=== PATIENT | female | born 1955 | race Caucasian/White ===

== ENCOUNTER → 2016-10-01 | Outpatient (CLI) | payer BC ==
[~2016-10-01] MED LIST: BNC/40 PO; LEVO100T PO; MULTTAB PO; SIMV20TA5 PO
[2016-10-01 09:38] LABS: HEMATOCRIT 45.2 % (37-47); MEAN CELL VOLUME 88.5 fL (80-100); MEAN CORPUSCULAR HEMOGLOBIN 28.8 pg (25-34); MEAN CORPUSCULAR HGB CONC 32.5 g/dl (32-36); MEAN PLATELET VOLUME 12.5 fL (7.4-10.4); PLATELET COUNT 188 K/uL (130-400); RED BLOOD COUNT 5.11 M/uL (4.2-5.4); WHITE BLOOD COUNT 5.67 K/uL (4.8-10.8)
[2016-10-01 09:51] LABS: ALT/SGPT 32 U/L (12-78); AST/SGOT 17 U/L (15-37); BLOOD UREA NITROGEN 19 mg/dl (7-18); BUN/CREATININE RATIO 23.8 (10-20); CALCIUM 9.3 mg/dl (8.5-10.1); CARBON DIOXIDE 27 mmol/L (21-32); CHLORIDE 109 mmol/L (98-107); CHOLESTEROL 188 mg/dl (0-200); CREATININE 0.81 mg/dl (0.60-1.20); GLUCOSE 95 mg/dl (70-99); POTASSIUM 4.2 mmol/L (3.5-5.1); SODIUM 142 mmol/L (136-145); TRIGLYCERIDES 75 mg/dl (0-150); VERY LOW DENSITY LIPOPROT CALC 15 mg/dl
[2016-10-01 10:00] LABS: ALB/GLOB RATIO 1.3 (0.9-2); ALKALINE PHOSPHATASE 70 U/L (45-117); CHOLESTEROL/HDL RATIO 3.2; HDL CHOLESTEROL 58 mg/dl; LDL CHOLESTEROL CALCULATED 115 mg/dl
[2016-10-01 10:34] LABS: ESTIMATED AVERAGE GLUCOSE 126 mg/dl; HA1C FLAG Normal (Normal)
--- NOTE | 2016-10-05 09:06 | CODING QUERY MEDICAL NECESSITY ---
CQSUPPORTING DIAGNOSIS NEEDED A supporting diagnosis is required for the test/procedure performed on this patient in order for us to be reimbursed by the patient's insurance. Please provide a supporting diagnosis for the following test/procedure listed below next to the test name along with your signature. *If there is no additional diagnosis for this patient that would support the following test/procedure please document that below next to the test/procedure. Test(s)/Procedure(s) that require a supporting diagnosis: DOS 10/01/16 ONLY DIAGNOSIS GIVEN WAS SCREENING NEED DIAGNOSIS FOR TESTS: HEMOGLOBIN, LIPID THYROID CBC COMPRENSIVE METABOLIC Provider Signature: Date: Thank you Lamar Romano Health Information Management Once completed, please kindly fax back to [phone] For questions please call [phone]
== END | disposition home or self-care (01) ==
LOC: C.LAB1850 06:54
PROVIDERS: ATTEND Family Medicine
DX: Z13.9 Encounter for screening, unspecified (principal); R73.09 Other abnormal glucose

== ENCOUNTER 2024-02-28 05:08 | Observation (INO) ==
--- NOTE | 2024-01-21 16:05 | PAT Medication Instructions ---
Medication Instructions Date of Service January 21, 2024 Home Medications Medication Instructions Recorded telmisartan 80 mg tablet 80 mg PO HS #90 tabs 04/13/23 peg 3350-sod sulf,[id number]-[id number]-rvb See Rx Instructions PO .COMPLEX #2 08/25/23 178.7-7.3-0.5-1.12-0.9 gram oral mL soln (Suflave) levothyroxine 100 mcg tablet 100 mcg PO HS #90 tabs 10/19/23 (Synthroid) multivitamin 1 tab PO QAM aspirin 81 mg tablet,delayed release 81 mg PO HS calcium 300 mg-D3 20 mcg-magnesium 25 mg-coppr 0.5 tm-glwz-curn tablet (Caltrate-D3 Plus Minerals) 1 tab PO DAILY telmisartan 80 mg tablet 80 mg PO HS peg 3350-sod sulf,[id number]-oko-rlp 178.7-7.3-0.5-1.12-0.9 gram oral soln (Suflave) See Rx Instructions PO .COMPLEX levothyroxine 100 mcg tablet (Synthroid) 100 mcg PO HS Collagen Powder 1 dose PO DAILY Probiotic 1 cap PO QAM alprazolam 0.5 mg tablet 0.5 mg PO DAILY PRN amlodipine 5 mg tablet 5 mg PO QAM cetirizine 10 mg tablet 10 mg PO DAILY PRN cyclobenzaprine 10 mg tablet 10 mg PO TID PRN diclofenac sodium 75 mg tablet,delayed release 75 mg PO BID indapamide 2.5 mg tablet 2.5 mg PO DAILY PRN meclizine 25 mg tablet 25 mg PO TID PRN rosuvastatin 10 mg tablet 10 mg PO HS Continue as directed alprazolam 0.5 mg tablet 0.5 mg PO DAILY PRN(if needed) ASK your surgeon for instructions diclofenac sodium 75 mg tablet,delayed release 75 mg PO BID ASK your prescriber and surgeon aspirin 81 mg tablet,delayed release 81 mg PO HS peg 3350-sod sulf,zkhyy-ddt-ajs 178.7-7.3-0.5-1.12-0.9 gram oral soln (Suflave) See Rx Instructions PO .COMPLEX STOP taking 2 weeks before surgery (or as soon as possible if surgery is within 2 weeks) Collagen Powder 1 dose PO DAILY DO NOT take the morning of surgery multivitamin 1 tab PO QAM calcium 300 mg-D3 20 mcg-magnesium 25 mg-coppr 0.5 np-mvxt-qmfa tablet (Caltrate-D3 Plus Minerals) 1 tab PO DAILY Probiotic 1 cap PO QAM cetirizine 10 mg tablet 10 mg PO DAILY PRN indapamide 2.5 mg tablet 2.5 mg PO DAILY PRN Take morning of surgery With a small sip of water, OTHERWISE NOTHING TO EAT OR DRINK AFTER MIDNIGHT: amlodipine 5 mg tablet 5 mg PO QAM cyclobenzaprine 10 mg tablet 10 mg PO TID PRN(if needed) meclizine 25 mg tablet 25 mg PO TID PRN(if needed) Take evening before surgery telmisartan 80 mg tablet 80 mg PO HS levothyroxine 100 mcg tablet (Synthroid) 100 mcg PO HS cyclobenzaprine 10 mg tablet 10 mg PO TID PRN(if needed) meclizine 25 mg tablet 25 mg PO TID PRN(if needed) rosuvastatin 10 mg tablet 10 mg PO HS Other Notes If you have any questions please call us at [phone] or [phone] or [phone] or [phone]
--- NOTE | 2024-01-31 08:20 | Anesthesiology Consultation ---
Date of Service January 31, 2024 Assessment & Plan (1) Encounter for pre-operative examination: Plan - Case discussed in detail with Dr. Adler who advised nothing additional is needed, patient is acceptable to proceed. - neurology office visit 04/09/23 [facility]: "...previously seen for recurrent episodes of left facial numbness with noncontributory imaging...partial empty sella without significant headaches and without no [sic] evidence of pseudotumor cerebri...chronic non-pulsatile tinnitus on the left...CT venogram hypoplastic left transverse sinus CTA of head and neck mild atherosclerotic plaque left greater than right carotid bulbs resulting in less than 50% stenosis. Focal kinking with moderate narrowing within the V1 segment of the left HOST...no high- grade stenosis proximal branch occlusion...suspect occasional BPPV...return as needed..." - Outpatient joint assessment: Patient is currently scheduled for inpatient pathway. If re-evaluated and patient/surgeon requests outpatient pathway, patient is not ideal candidate for outpatient joint program from anesthesia standpoint. Chart Review Chart Review: Acceptable Risk for Surgery and Patient seen in Pre Admission Testing Teaching & Discussion Pre-Anesthesia Teaching/Discussion Notes: Instructed NPO after midnight before surgery, except medications with 15 cc of water. Medication instructions provided according to the PAT guidelines. History Surgery Operation Date: 02/28/24 11:00 Proposed Procedures p Right Anterior Total Hip Arthroplasty - Eric Whitaker DO Height/Weight Height: 4 ft 11 in Weight: 75.6 kg Allergies Allergy/AdvReac Type Severity Reaction Status Date / Time clindamycin Allergy Severe Anaphylaxis Verified 01/31/24 08:47 Medications Home Medications Medication Instructions Recorded Confirmed Last Taken multivitamin 1 tab PO QAM 05/22/18 01/21/24 09/18/19 aspirin 81 mg tablet,delayed 81 mg PO HS 08/16/18 01/21/24 09/18/19 release calcium 300 mg-D3 20 mcg-magnesium 1 tab PO DAILY 05/26/22 01/21/24 Unknown 25 mg-coppr 0.5 fp-aqti-bgty tablet (Caltrate-D3 Plus Minerals) telmisartan 80 mg tablet 80 mg PO HS #90 tabs 04/13/23 01/21/24 Unknown peg 3350-sod sulf,qwjqp-skw-cov See Rx Instructions PO .COMPLEX #2 08/25/23 09/02/23 Unknown 178.7-7.3-0.5-1.12-0.9 gram oral mL soln (Suflave) Collagen Powder 1 dose PO DAILY 01/21/24 01/21/24 Unknown Probiotic 1 cap PO QAM 01/21/24 01/21/24 Unknown alprazolam 0.5 mg tablet 0.5 mg PO DAILY PRN Anxiety 01/21/24 01/21/24 Unknown amlodipine 5 mg tablet 5 mg PO QAM 01/21/24 01/21/24 Unknown cetirizine 10 mg tablet 10 mg PO DAILY PRN Allergies 01/21/24 01/21/24 Unknown cyclobenzaprine 10 mg tablet 10 mg PO TID PRN Muscle Spasms 01/21/24 01/21/24 Unknown diclofenac sodium 75 mg 75 mg PO BID 01/21/24 01/21/24 Unknown tablet,delayed release indapamide 2.5 mg tablet 2.5 mg PO DAILY PRN Edema 01/21/24 01/21/24 Unknown meclizine 25 mg tablet 25 mg PO TID PRN Dizziness 01/21/24 01/21/24 Unknown rosuvastatin 10 mg tablet 10 mg PO HS 01/21/24 01/21/24 Unknown levothyroxine 100 mcg tablet 100 mcg PO QAM 01/31/24 01/31/24 Unknown (Synthroid) Additional Notes: Patient was instructed to take levothyroxine in the morning as she stated that is currently how she is taking medication. Past Medical History Medical History (Updated 01/31/24 @ 11:21 by Estrellita Ramirez PA-C) Anxiety Claustrophobia Empty sella syndrome last MRI done 2022, denies any issues-discharged by [facility] neurology GERD (gastroesophageal reflux disease) controlled, stable per pt History of anesthesia reaction "6-8 hours after last colonoscopy my eyes were runny nose itchy/watery and kept sneezing" History of colon polyps History of dizziness intermittent/meclizine - no issues current History of kidney stones passed on own HTN (hypertension) controlled, stable per pt Hx of epistaxis denies any recent episodes Hx of hydronephrosis Hx of migraines Hyperlipidemia Hypothyroidism Knee pain right-chronic Lumbar disc disease Osteoarthritis Tinnitus Left Transverse sinus thrombosis noted on 2021 head MRA; not noted on 2022 head CTA; CT venogram hypoplastic left transverse sinus CTA Patient denies h/o seizures, heart attack, heart failure, DM, or blood transfusions. Exercise / Class Metabolic Activity II 4-5 Yardwork/Stairs/Walk up hill (denies chest discomfort or shortness of breath with one flight of stairs) Past Family History Family History Mother Family history of diabetes mellitus Diabetes Hypertension Stroke Brother Coronary heart disease Prostate cancer Bladder cancer Father Nephrolithiasis Grandmother (Paternal) Breast cancer Mother Myocardial infarction Heart disease Other No family history of adverse response to anesthesia Denies family history of Ovarian cancer Colorectal cancer Past Surgical History Surgical History History of bilateral tubal ligation History of colonoscopy History of dilatation and curettage History of oral surgery bone graft to old root canal site History of root canal procedure History of wisdom tooth extraction Past Anesthesia History No Family Hx of Anesthesia Complications History of PONV No Hx of PONV and Hx of Motion Sickness Social History Smoking Status: Never smoker Do You Dip or Chew Tobacco: No Hx Alcohol Use: Yes Alcohol type: wine alcohol intake frequency: holidays/special occasions only Hx Substance Use: No substance use type: does not use Review of Systems Snoring, denies witnessed apneas. Patient denies chest pain, shortness of breath, dyspnea on exertion, fever, chills, cough, wheezing, or palpitations. Physical Exam Vital Signs Vitals BP 160/81 (Pt states is anxious regarding surgery) P 75 TEMP 98.6 SP02 98% on RA RESP 18 Physical Patient resting comfortably in chair in no acute distress, alert and oriented, responding appropriately throughout visit Full cervical extension range of motion without pain TMD 3.5 finger breadths Mallampati Score 2 Dentition: implant and several caps/crowns, denies chipped or loose teeth, or bridges Lungs: normal respiratory effort. Good air movement, clear throughout to auscultation, no adventitious breath sounds Cardiac: regular rate and rhythm, no murmurs noted Carotid arteries: negative bruit bilat Lab Results Anesthesia Preop Results Results Anesthesia Widget: WBC 5.27 K/ul (4.8-10.8) 01/31/24 Hgb 14.5 g/dl (12.0-16.0) 01/31/24 Hct 43.9 % (37.0-47.0) 01/31/24 Plt 197 K/uL (130-400) 01/31/24 Na 140 mmol/L (136-145) 01/31/24 K 4.5 mmol/L (3.5-5.1) 01/31/24 Cl 106 mmol/L (98-107) 01/31/24 CO2 27 mmol/L (21-32) 01/31/24 BUN 15 mg/dl (6-23) 01/31/24 Creat 0.74 mg/dl (0.6-1.2) 01/31/24 Glucose Level 92 mg/dl (70-99(Fasting)) 01/31/24 PT 10.6 Seconds (9.0-12.0) 01/31/24 PTT 27 Seconds (21-31) 01/31/24 INR 1.0 (0.9-1.1) 01/31/24 HA1c 6.3 % (4.5-5.6) H 01/31/24 Blood Type O Negative 01/31/24 Antibody Screen NEGATIVE 01/31/24 Testing Electrocardiogram Date: 01/31/24 NSR, rate 72 bpm Chest X-Ray Date: 01/31/24 No evidence of acute cardiopulmonary disease, communicable disease or tuberculosis. No interval change. Stress Test Date: 12/17/20 METS 11 MPHR 102% Negative for inducible ischemia EF 60-65% Normal LV wall motion Grade I diastolic dysfunction Mild cLVH Other Testing Head and neck CTA 05/27/22 1. No acute intracranial abnormality. 2. No evidence of cerebral venous thrombosis. 3. Unremarkable CTA of the head and neck. Head and neck MRA 05/09/21 MRI brain shows no acute abnormality. Mildly extensive scattered foci of T2 hyperintensity in the cerebral white matter bilaterally, without restricted diffusion, a non-specific finding. Mild cerebral volume loss. MRA of neck shows no flow limiting stenosis. MRA of the head shows no large vessel occlusion, flow limiting stenosis, aneurysm or vascular malformation. 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 Moderately expanded empty sella present. This is a nonspecific finding, however, in the setting of headaches can be associated with idiopathic intracranial h ypertension (pseudotumor cerebri) No focal finding to explain recurrent left facial numbness
--- NOTE | 2024-02-23 07:49 | History & Physical Report ---
Date of Service February 23, 2024 Assessment & Plan (1) Osteoarthritis of right hip: We will proceed with a right anterior total of arthroplasty. Postoperatively she will be started on aspirin for DVT prophylaxis and kept overnight in the hospital for postop medical management. She plans to use energy physical therapy upon discharge. History of Present Illness Chief Complaint: Osteoarthritis of the right hip. Primary Care Provider: Lyndon Merritt MD June is a pleasant 68-year-old female who has been dealing with chronic increasing right hip and groin pain. X-ray and clinical examination have been diagnostic for advanced arthritis of her right hip. She had been seen by one of the partners in my office. She has had injections of her hip which only helped briefly. It is to the point where it is affecting her quality of life and her daily activities. After failing conservative treatment, she has elected to proceed with a right anterior total of arthroplasty. Allergies Allergy/AdvReac Type Severity Reaction Status Date / Time clindamycin Allergy Severe Anaphylaxis Verified 01/31/24 08:47 Home Medications Medication Instructions Recorded Confirmed Type multivitamin 1 tab PO QAM 05/22/18 01/21/24 History aspirin 81 mg tablet,delayed 81 mg PO HS 08/16/18 01/21/24 History release calcium 300 mg-D3 20 mcg-magnesium 1 tab PO DAILY 05/26/22 01/21/24 History 25 mg-coppr 0.5 fr-hrrh-ltus tablet (Caltrate-D3 Plus Minerals) telmisartan 80 mg tablet 80 mg PO HS #90 tabs 04/13/23 01/21/24 Rx peg 3350-sod sulf,fpuzh-wir-ddr See Rx Instructions PO .COMPLEX #2 08/25/23 09/02/23 Rx 178.7-7.3-0.5-1.12-0.9 gram oral mL soln (Suflave) Collagen Powder 1 dose PO DAILY 01/21/24 01/21/24 History Probiotic 1 cap PO QAM 01/21/24 01/21/24 History alprazolam 0.5 mg tablet 0.5 mg PO DAILY PRN Anxiety 01/21/24 01/21/24 History amlodipine 5 mg tablet 5 mg PO QAM 01/21/24 01/21/24 History cyclobenzaprine 10 mg tablet 10 mg PO TID PRN Muscle Spasms 01/21/24 01/21/24 History diclofenac sodium 75 mg 75 mg PO BID 01/21/24 01/21/24 History tablet,delayed release indapamide 2.5 mg tablet 2.5 mg PO DAILY PRN Edema 01/21/24 01/21/24 History meclizine 25 mg tablet 25 mg PO TID PRN Dizziness 01/21/24 01/21/24 History rosuvastatin 10 mg tablet 10 mg PO HS 01/21/24 01/21/24 History levothyroxine 100 mcg tablet 100 mcg PO QAM 01/31/24 01/31/24 History (Synthroid) cetirizine 10 mg tablet 10 mg PO DAILY PRN Allergies #30 02/11/24 Rx tabs Past Med/Surg History Problem List Osteoarthritis of right hip Other sprain of right hip, subsequent encounter Other specific joint derangements of unspecified hip, not elsewhere classified Labral tear of hip joint GERD (gastroesophageal reflux disease) Hip arthritis Plantar fasciitis of right foot IT band syndrome Greater trochanteric pain syndrome Impaired glucose tolerance Knee pain Lumbar disc disease Osteoarthritis of both hips Tinnitus of left ear Dysequilibrium Empty sella syndrome Anxiety Atypical migraine 02/06/22 HPV test positive History of colon polyps Hypothyroidism Hyperlipidemia Hypertension Epistaxis, recurrent (Acute) 09/10/15 Medical History Transverse sinus thrombosis noted on 2021 head MRA; not noted on 2022 head CTA; CT venogram hypoplastic left transverse sinus CTA Claustrophobia History of kidney stones passed on own Hx of epistaxis denies any recent episodes Hx of migraines Hx of hydronephrosis Tinnitus Left Anxiety Knee pain right-chronic Lumbar disc disease History of dizziness intermittent/meclizine - no issues current Empty sella syndrome last MRI done 2022, denies any issues-discharged by [facility] neurology Hypothyroidism History of colon polyps HTN (hypertension) controlled, stable per pt Hyperlipidemia Osteoarthritis GERD (gastroesophageal reflux disease) controlled, stable per pt History of anesthesia reaction "6-8 hours after last colonoscopy my eyes were runny nose itchy/watery and kept sneezing" Surgical History History of dilatation and curettage History of bilateral tubal ligation History of colonoscopy History of oral surgery bone graft to old root canal site History of root canal procedure History of wisdom tooth extraction Family History Mother Family history of diabetes mellitus Diabetes Hypertension Stroke Brother Coronary heart disease Prostate cancer Bladder cancer Father Nephrolithiasis Grandmother (Paternal) Breast cancer Mother Myocardial infarction Heart disease Other No family history of adverse response to anesthesia Denies family history of Ovarian cancer Colorectal cancer Social History Smoking Status: Never smoker Second Hand Exposure: No; Do You Dip or Chew Tobacco: No; Tobacco Cessation Education Requested by Patient: No Hx Alcohol Use: Yes Alcohol type: wine Hx Substance Use: No Preferred Language: Zambian Communication Ability: Effective Visual Impairment: No Limitations Hearing Ability: Normal 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 Beliefs That Will Affect Care: None marital status: Current Living Situation: Spouse current occupational status: retired How many Children do You have: 4 Other Information That Helps Us Care for You: No Feels Safe at Home: Yes Safety Concerns: Feels Safe At This Time Childhood Exposure to Second-Hand Smoke: Yes Diet: regular caffeine: No during the past year weight has: increased > 10 lbs Dental Care, Regularly: Yes Physical Activity Frequency: Daily Seatbelt Use: always Sunscreen Use: Yes Assistive Devices: Contacts, Glasses and Other Assistive Devices Comment: Dental Implants Review of Systems All systems reviewed & are unremarkable except as noted in HPI & below. Physical Exam On physical exam of the right hip, she is decreased range of motion. She has pain with internal/external rotation. All of her pains located in the groin.. Constitutional WD/WN, vitals as above Eyes PERRL, conjunctivae normal, anicteric sclerae ENMT external ear and nose normal, oropharynx normal Neck trachea midline, no thyromegaly Respiratory normal respiratory effort Cardiovascular RRR, no murmur, no edema Gastrointestinal (Abdomen) normal bowel sounds, soft, nontender, no hepatosplenomegaly Psychiatric A+Ox3, euthymic affect Results & Data Results & Data Laboratory Results . Diagnostic Findings X-rays of the right hip show advanced osteoarthritis with joint space narrowing, osteophyte formation, and [id number] tubulation. PG Care Time/CCT Total # of Minutes Spent Total Time Spent with Patient: Total time spent is greater than 50% in coordination of care (as documented) at patient's floor/unit and/or counseling patient: Coding Level of Care Code None Diagnoses Osteoarthritis of right hip M16.11
[2024-02-28] MEDS: GABAPENTIN 300 MG CAP PO SCH (05:59)
[2024-02-28] MEDS: FAMOTIDINE 20 MG TAB PO SCH (05:59)
[2024-02-28] MEDS: LR 500ML BOLUS, THEN 15ML/HR IV SCH (05:59)
[2024-02-28] MEDS: ACETAMINOPHEN 500 MG TAB PO SCH (05:59)
[2024-02-28] MEDS: dexAMETHasone**PF** 10 MG/ML VIAL IV SCH (06:00)
[2024-02-28] MEDS ORDERED: BUPIVACAINE 0.5 % 5 MG/1 ML PF 10ML VIAL ONE (06:18)
--- NOTE | 2024-02-28 06:30 | History & Physical Bridge Note ---
Date of Service February 28, 2024 History & Physical Bridge Note I have examined the patient, reviewed the History & Physical and in the interval since the performance of the History & Physical I have noted the following changes of clinical significance: no changes noted
[2024-02-28] MEDS ORDERED: LIDOCAINE 2% 2 ML VIAL/AMP(20MG/ML) INFIL ONE (06:36)
[2024-02-28] MEDS ORDERED: fentaNYL citrate PF 100 MCG/2 ML VIAL ONE (06:37)
[2024-02-28] MEDS ORDERED: MIDAZOLAM HCL 1 MG/ML 2ML VIAL ONE (06:37)
[2024-02-28] MEDS ORDERED: PROPOFOL IV EMULSION 10 MG/ML 20 ML VIAL IV ONE (06:37)
[2024-02-28] MEDS ORDERED: ONDANSETRON INJ 2 MG/ML 2 ML VIAL IV PRN ×2 (06:43→09:21)
[2024-02-28] MEDS ORDERED: fentaNYL citrate PF 100 MCG/2 ML VIAL IV PRN (06:43)
[2024-02-28] MEDS ORDERED: ATROPINE SULFATE 0.1 MG/ML 10ML SYR IV PRN (06:43)
[2024-02-28] MEDS ORDERED: ePHEDrine sulfate 50 MG/ML AMP IV PRN (06:43)
[2024-02-28] MEDS: TRANEXAMIC ACID 1,000 MG **IV Pre-op IV SCH (06:46)
[2024-02-28] MEDS: ceFAZolin 2000MG 2,000 MG/15 ML SYR IV SCH (06:58)
[2024-02-28] MEDS ORDERED: PHENYLEPHRINE 100MCG/ML 5ML SYR ONE (07:21)
[2024-02-28] MEDS: ROPIV 0.5% 246mg, Ketorolac 30mg, EPINEPHrine 0.5mg in NSS INFIL SCH (07:34)
[2024-02-28] MEDS: TRANEXAMIC ACID 1,000 MG **IV Intra-op IV SCH (08:02)
--- NOTE | 2024-02-28 08:16 | Fluoroscopy Report ---
FL hip RT 1V CLINICAL HISTORY: RIGHT ANTERIOR SAMUEL COMPARISON STUDY: Pelvis and hip radiographs June 09, 2023. FLUOROSCOPY TIME: 12 seconds. Ka,r: 1.5637 mGy FLUOROSCOPIC IMAGES: 1 FINDINGS: Fluoroscopy was provided during anterior total right hip arthroplasty. Alignment is anatomi c. There is an acetabular screw. No fractures are identified by fluoroscopy. IMPRESSION: Fluoroscopy provided during anterior total right hip arthroplasty. ACT 112: Negative or not required by law. Electronically signed by: Dario Yang M.D. 02/28/2024 8:14 AM
--- NOTE | 2024-02-28 08:24 | Operative Report ---
PG Post Operative Report Pre & Post Diagnosis Operation Date: 02/28/24 07:00 Pre-Op Diagnosis: Right Hip Arthritis Post-Op Diagnosis: Right Hip Arthritis I identified the patient and participated in the time-out.: Yes Procedure Operation Date: 02/28/24 07:00 Actual Procedures p Right Anterior Total Hip Arthroplasty(Right) - Eric Whitaker DO Surgeon Eric Whitaker DO Autopsy Assistant None Estimated Blood Loss 150 Findings Consistent with Post-Op Diagnosis Specimens Right femoral head Description of Procedure Implants used I used a ZimmerBiomet total hip arthroplasty system with a size 3 standard Avenir Complete stem, a 50 mm G7 cup with a 25mm screw, an E1 polyethylene liner, a 36 mm ceramic head with a 0 neck. June arrived at the hospital for the above procedure. She was seen in the preoperative holding area and the operative extremity was identified and signed. She was given a spinal anesthetic, a preoperative antibiotic, and TXA. She was then taken back to the operating room and laid on the table in the supine position. She was given basic sedation. The operative leg was secured to a Puristst leg positioner. The hip was then prepped and draped in sterile fashion. A timeout was done and the patient and the operative extremity was properly identified. An anterior approach was used. Dissection was taken down through the fascia and the tensor muscle belly was retracted laterally and the rectus was retracted medially. The circumflex vessels were identified and ligated. The capsule was then incised and tagged for later repair. The femoral neck was then cut and the femoral head was removed. The acetabulum was exposed. Time was spent doing a complete circumferential labral release. Sequential reaming of the acetabulum up to a size 49 reamer was done. Final reamings were done under fluoroscopy to ensure appropriate version. A Biomet 50 mm G7 cup was then impacted into place. A single 25 mm screw was placed. The E1 polyethylene liner was then snapped into place. Surrounding soft tissues were then injected with 100 cc of an orthopedic pain control cocktail. The proximal femur was then exposed. Sequential broaching up to a size 3 broach was done. Off that broach a size 36 head with a 0 neck was trialed. The hip was reduced and fluoroscopic images showed anatomic alignment of the implants in acceptable length. The broach was removed. The final size 3 standard offset Avenir Complete stem was then impacted into place. A ceramic 36 mm head with a 0 neck was then impacted onto the stem and the hip was reduced. Final fluoroscopic images showed anatomic alignment of the hip. The capsule was then closed with #1 Vicryl suture. A dilute betadyne lavage was then done for 3 minutes. The joint was then irrigated with normal saline solution. The fascia was closed with #1 PDS suture. Skin was closed with 2-0 Vicryl, sal, and a Silverlon dressing. She was then transferred to a hospital bed and taken to the post anesthesia care unit in stable condition. She tolerated the procedure well. I attest to the content of the Intraoperative Record and any orders documented therein. Any exceptions are noted below.
--- NOTE | 2024-02-28 08:55 | XRay Report ---
XR hip 1V RT w pelvis CLINICAL HISTORY: IN PACU - Post Surgical COMPARISON: Right hip radiographs June 09, 2023. FINDINGS: Alignment of the total right hip arthroplasty is anatomic. There is no periprosthetic frac ture or unexpected radiopaque foreign body. There is an acetabular screw and skin sal. IMPRESSION: Expected findings following total right hip arthroplasty. ACT 112: Negative or not required by law. Electronically signed by: Dario Yang M.D. 02/28/2024 8:53 AM
[2024-02-28] MEDS: ORTHO JOINT ANESTHETIC ONE (09:19)
[2024-02-28] MEDS: LR 60ML/HR IV SCH (09:19)
[2024-02-28] MEDS ORDERED: INDAPAMIDE 1.25 MG TAB PO PRN (09:21)
[2024-02-28] MEDS ORDERED: MAGNESIUM HYDROXIDE SUSP 30 ML UDC PO PRN (09:21)
[2024-02-28] MEDS ORDERED: HYDROmorphone INJ 0.5 MG/0.5 ML SYR IV PRN (09:21)
[2024-02-28] MEDS ORDERED: CETIRIZINE HCL 10 MG TABLET PO PRN (09:21)
[2024-02-28] MEDS ORDERED: MECLIZINE HCL 25 MG TAB PO PRN (09:21)
[2024-02-28] MEDS ORDERED: bisacodyL 10 MG SUPP PR PRN (09:21)
[2024-02-28] MEDS ORDERED: NALOXONE HCL 0.4 MG/1 ML VIAL/CARP IV PRN (09:21)
[2024-02-28] MEDS ORDERED: METOCLOPRAMIDE HCL INJ 5 MG/ML 2 ML VIAL IV PRN (09:21)
[2024-02-28] MEDS ORDERED: ALPRAZolam 0.5 MG TABLET PO PRN (09:21)
[2024-02-28] MEDS: LEVOTHYROXINE SODIUM 100 MCG TABLET PO SCH (10:29)
[2024-02-28] MEDS: DOCUSATE SODIUM 100 MG CAP PO SCH (10:34)
[2024-02-28] MEDS: ASPIRIN 81 MG ECTAB PO SCH (10:34)
[2024-02-28] MEDS: KETOROLAC 30 MG/ML VIAL IV SCH (10:34)
[2024-02-28] MEDS: MULTIVITAMIN TAB PO SCH (10:34)
[2024-02-28] MEDS: amLODIPine BESYLATE 5 MG TAB PO SCH (10:35)
[2024-02-28] MEDS: ceFAZolin 1000MG 1,000 MG/7.5 ML SYR IV SCH (13:48)
--- NOTE | 2024-02-28 13:56 | Anesthesiology Progress Note ---
Date of Service February 28, 2024 Anesthesia Post Procedure Vital Signs Vital Signs: Temp Pulse Resp BP BP Pulse Ox O2 Del Method 02/28/24 12:28 36.6 C 88 18 138/78 96 Room Air 02/28/24 11:25 84 16 135/75 92 Room Air 02/28/24 10:17 80 16 149/83 H 97 Room Air 02/28/24 09:51 36.4 C L 80 18 136/81 96 Room Air 02/28/24 09:40 Room Air 02/28/24 09:20 36.3 C L 72 18 125/66 94 Room Air 02/28/24 09:05 36.4 C L 70 13 112/52 L 98 Room Air 02/28/24 08:55 77 18 119/53 L 92 Room Air 02/28/24 08:45 75 19 116/52 L 96 Room Air 02/28/24 08:35 75 23 96/50 L 96 Room Air 02/28/24 08:26 36.3 C L 78 15 109/55 L 95 Room Air 02/28/24 05:46 36.4 C L 88 18 168/76 H 98 Room Air Pain Intensity Right Hip: Pain Intensity: 8 Transfer of Care Handoff Completed per policy Notes Mental Status: alert / awake / arousable Patient Amnestic to Procedure: Yes Nausea / Vomiting: adequately controlled Pain: adequately controlled Airway Patency, RR, SpO2: stable & adequate BP & HR: stable & adequate Hydration State: stable & adequate Neuraxial Anesthesia: was administered and sensory block is resolving Anesthetic Complications: no major complications apparent and Pt Satisfied with anesthetic care
[2024-02-28] MEDS: LOSARTAN POTASSIUM 50 MG TAB PO SCH (20:59)
[2024-02-28] MEDS: ROSUVASTATIN CALCIUM 10 MG TAB PO SCH (21:00)
[2024-02-28] MEDS: SENNA 8.6 MG TAB PO SCH (21:00)
[2024-02-29] MEDS: oxyCODONE HCL IR 5 MG TAB (IMMEDIATE RELEASE) PO PRN (01:21)
--- NOTE | 2024-02-29 06:46 | Orthopedic Progress Note ---
Date of Service February 29, 2024 Assessment & Plan (1) Status post right hip replacement: Overall she is doing fairly well. She is not having much pain in the right hip. She will be seen by physical therapy today for ambulation and range of motion exercises. She is on aspirin for DVT prophylaxis. She can be discharged to home later today. She will follow-up with orthopedics in 2 weeks. Kole Watkins was seen and examined at bedside this morning. Overall she is doing fairly well. She is not having too much pain in the right hip. She has been up and ambulating to the bathroom. She has no complaints.. Review of Systems All systems reviewed & are unremarkable except as noted in HPI & below. Physical Exam On physical exam of the right hip, the dressing is clean and dry. Her leg is out full extension. She has active dorsiflexion plantarflexion of her right ankle.. Results & Data Results & Data Laboratory Results . Diagnostic Findings Postoperative x-rays of the right hip show the prosthesis to be in anatomic alignment without any evidence of fracture, dislocation, or loosening.. PG Care Time/CCT Total # of Minutes Spent Total Time Spent with Patient: Total time spent is greater than 50% in coordination of care (as documented) at patient's floor/unit and/or counseling patient: Coding Level of Care Code 03343 Post Operative Follow-Up Diagnoses Status post right hip replacement Z96.641
--- NOTE | 2024-02-29 06:47 | Discharge Summary ---
Date of Service February 29, 2024 Admission HPI (Per Admitting) June is a pleasant 68-year-old female who has been dealing with chronic increasing right hip and groin pain. X-ray and clinical examination have been diagnostic for advanced arthritis of her right hip. She had been seen by one of the partners in my office. She has had injections of her hip which only helped briefly. It is to the point where it is affecting her quality of life and her daily activities. After failing conservative treatment, she has elected to proceed with a right anterior total of arthroplasty. Admission Exam (Per Admitting) On physical exam of the right hip, she is decreased range of motion. She has pain with internal/external rotation. All of her pains located in the groin.. Principal Diagnosis Same as "Discharge Diagnosis" noted below under Discharge Instructions. Discharge Exam On physical exam of the right hip, the dressing is clean and dry. Her leg is out full extension. She has active dorsiflexion plantarflexion of her right ankle.. Discharge Data Procedures Performed Operation Date: 02/28/24 07:00 Actual Procedures p Right Anterior Total Hip Arthroplasty(Right) - Eric Whitaker DO Ordered Studies 02/28/24 FL hip RT 1V Routine Hospital Course (1) Status post right hip replacement: On February 28, 2024 June arrived at [facility] and underwent a right hip replacement without complication. She had a spinal anesthetic. Postoperatively she was started on aspirin for DVT prophylaxis and transferred to the general orthopedic floors. Her hospital course was uneventful. On postop day #1, her vital signs were stable and her pain was well-controlled. She was able to participate well with physical therapy doing ambulation and range of motion exercises. She was then discharged to home. She will follow-up orthopedics in 2 weeks. PG Care Time/CCT Total # of Minutes Spent Total Time Spent with Patient: Total time spent is greater than 50% in coordination of care (as documented) at patient's floor/unit and/or counseling patient: Discharge Plan Discharge Items Patient Disposition: Home - Self-Care Reason For Visit: Right Hip Arthritis Discharge Diagnosis: Right hip replacement Activity: Per Instructions section Non-emergency contact: Surgeon Call non-emergency contact if: your wound has increased redness and your wound has increased drainage Follow-up/Referrals: Lyndon Merritt MD [Primary Care Provider] - Diet: Regular Addtl Attending Provider Instructions: Activity and Therapy Recommendations: * If you are using [facility] then therapy will be provided at your home until they feel you have accomplished all of your goals. * If you are using [facility] then Physical Therapy will be provided until they feel you are ready to start Outpatient Physical Therapy. * If you are not using home therapy then Outpatient Physical Therapy should start about 3-5 days from your day of surgery. Therapy will last about 6-10 weeks * You were shown a series of exercises in the hospital. Do these exercises three times each day including the exercises you were shown in physical therapy. * Get up and walk several times each day.~ For the first four weeks, try not to stand or walk for more than one hour at a time. If you do stand or walk for more than one hour, you will not hurt anything, but your leg will likely swell.~~ * As you feel comfortable, you may change from the walker or crutches to a cane and~then to independent walking. Medications: * Narcotic You will likely be sent home from the hospital with a prescription for the narcotic pain medication that worked best throughout your stay. * Cefadroxil -take the antibiotic twice a day for 10 days to help prevent infection. * Aspirin Most patients will be required to take Aspirin 81mg twice a day for 6 weeks after surgery. This is obtained [id number] and a prescription is not necessary. * Other medications may be prescribed for specific circumstances. If you have any questions, please call the office at . * Resume previous home medications unless otherwise instructed TEDs/Elastic Stockings: The white elastic stockings help limit swelling and prevent blood clots from forming in your legs. The more you wear them, the more they work. Wear them for six weeks. Dressing Care: Leave the Silverlon dressing in place for 7 days. After 7 days you may remove the dressing. If the incision is not draining then you may leave the sal open to air. If there is a little bit of drainage or if the sal are getting stuck on your clothing then cover the incision with a dry dressing. The sal will be removed at your 2 week follow-up appointment. Showering: You may shower with the Silverlon dressing in place. Do not let the shower spray hit the dressing directly. Pat the Silverlon dressing dry. If the dressing becomes wet underneath, then simply remove the dressing. Keep the incision dry until you are 7 days out from the day of surgery. After 7 days you may remove the Silverlon dressing and shower with the sal exposed. Let soapy water run over the sal and pat them dry. Do not scrub or soak the incision. Diet: You may resume your previous diet. Things To Watch For: * Drainage from the incision site that occurs more than one week after your surgery. * Increased redness at the incision site. * Fever above 102 degrees Fahrenheit. * Unusual chest pain or shortness of breath. * Call [facility] at with any of the above problems Follow-Up Visit: Follow-up with Dr. Whitaker's office 2-3 weeks after your day of surgery. We will remove your sal and answer any questions. If you have any additional questions or concerns, Dr Whitaker is usually in the office at the same time and will be available An appointment was probably scheduled when you signed-up for surgery in the office. If you have any questions call Office Instructions: More detailed instructions as well as Frequently Asked Questions were provided in a folder by our office when you signed-up for surgery. Please review these instructions when you get home. If you have any further questions or concerns, please feel free to call the office at [phone] Pending Studies at Discharge: No Stand-Alone Forms: [facility], Smoking Cessation Medications and DC Order Prescriptions: New oxycodone 5 mg Tablet 5 mg PO Q4H PRN (Reason: pain) Qty: 30 0RF cefadroxil 500 mg capsule 500 mg PO BID 10 Days Qty: 20 0RF Continued telmisartan 80 mg tablet 80 mg PO HS Qty: 90 3RF Suflave 178.7-7.3-0.5 gram recon soln See Rx Instructions PO .COMPLEX Qty: 2 0RF Rx Instructions: TAKE DIRECTED PER SPLIT DOSE INSTRUCTIONS BIN: [id number] N: 2000 GROUP: [id number] cetirizine 10 mg tablet 10 mg PO DAILY PRN (Reason: Allergies) Qty: 30 11RF Caltrate-D3 Plus Minerals 300 mg-800 unit -25 mg-0.5 mg tablet 1 tab PO DAILY multivitamin Tablet 1 tab PO QAM Collagen Powder 1 dose PO DAILY Probiotic 1 cap PO QAM cyclobenzaprine 10 mg tablet 10 mg PO TID PRN (Reason: Muscle Spasms) indapamide 2.5 mg tablet 2.5 mg PO DAILY PRN (Reason: Edema) amlodipine 5 mg tablet 5 mg PO QAM alprazolam 0.5 mg tablet 0.5 mg PO DAILY PRN (Reason: Anxiety) meclizine 25 mg tablet 25 mg PO TID PRN (Reason: Dizziness) diclofenac sodium 75 mg tablet,delayed release (DR/EC) 75 mg PO BID rosuvastatin 10 mg tablet 10 mg PO HS levothyroxine [Synthroid] 100 mcg tablet 100 mcg PO QAM Changed aspirin 81 mg Tablet,Delayed Release (Dr/Ec) 81 mg PO BID 42 Days Qty: 0 0RF Discharge Orders: Discharge Order (Routine); Ordered 02/29/24 Ordered By: Eric Whitaker Admission Data Admit Date/Time: 02/28/24 08:27 Attending Provider: Eric Whitaker Admit Provider: Eric Whitaker Primary Care Provider: Lyndon Merritt
[2024-02-29 07:27] VITALS: BP 137/71; PULSE 82; RESP 16; TEMP 97.9; O2SAT 96
[2024-02-29] MEDS: dexAMETHasone 4 MG TAB PO SCH (07:47)
== END 2024-02-29 10:40 | disposition home or self-care (01) ==
LOC: ASU 05:08 → 3E 05:08